=== PATIENT | female | born 1955 | race Caucasian/White ===

== ENCOUNTER → 2023-09-27 13:31 | Outpatient (REF) | payer MEDICARE, SELFPAY | LOC: WDC 13:31 | PROVIDERS: ATTENDING PHYSICIAN Surgery; FAMILY PHYSICIAN Nurse Practitioner Primary Care | DX: C50.412 Malignant neoplasm of upper-outer quadrant of left female breast (principal) | CPT/HCPCS: 19285; 38792; 76942; 77065; A4648; A9541 ==

== ENCOUNTER 2023-09-28 06:12 | Day surgery (SDC) | payer MEDICARE, SELFPAY ==
[2023-09-20 13:32] VITALS: BMI 38.0
[2023-09-28] VITALS (8 sets, daily range): BP systolic 123–184; BP diastolic 61–92; BMI 38.0
[2023-09-28] MEDS: TYLENOL 1000 MG PO (10:37)
[2023-09-28] MEDS: NORMOSOL-R 1000 IV (11:04)
[2023-09-28] MEDS: LOVENOX 40 MG SC (11:40)
--- NOTE | 2023-09-28 13:19 | W.IMMPOSTOP ---
Surgical Immed Post Op Note
-
Primary Surgeon: Kevin
Assisting Surgeon: None
Pre-op Diagnosis: Left breast ca
Post-op Diagnosis: Same
Procedure Performed: Left localized lumpectomy and sentinel lymph node mapping and biopsy
Anesthesia Type: TIVA
Specimen / Cultures: Left lumpectomy, sentinel node, margins
Estimated Blood Loss: 10cc
Complications: None
Operative Findings: Neg frozen on lymph node
[place] Node Bx Breast Cancer
[place] Node Bx Breast Cancer
Operation performed with curative intent: Yes
Tracer(s) to ID [place] Nodes in Non-Neoadjuvant setting: Radioactive Tracer
Tracer(s) to ID [place] Nodes in the Neoadjuvant Setting: N/A
All nodes at end of dye-filled Lymphatic Channel removed: N/A
All Significantly Radioactive Nodes were removed: Yes
All Palpably Suspicious Nodes were Removed: Yes
Bx Proven Pos Nodes Marked Prior to Chemo ID'd & Removed: N/A
== END 2023-09-28 15:08 | disposition home or self-care (01) ==
LOC: SDS 06:12
PROVIDERS: ATTENDING PHYSICIAN Surgery; FAMILY PHYSICIAN Nurse Practitioner Primary Care
DX: C50.412 Malignant neoplasm of upper-outer quadrant of left female breast (principal); Z17.0 Estrogen receptor positive status [ER+]
CPT/HCPCS: 38525; 19301; 88305; 88307; 88332; 76098; 88331; 88341; 88342; 88360; A4648

== ENCOUNTER → 2024-07-31 13:06 | Outpatient (REF) | payer MEDICARE, SELFPAY | LOC: WDC 13:06 | PROVIDERS: ATTENDING PHYSICIAN Family Medicine Geriatric Medicine; FAMILY PHYSICIAN Nurse Practitioner Primary Care | DX: Z12.31 Encounter for screening mammogram for malignant neoplasm of breast (principal); Z85.3 Personal history of malignant neoplasm of breast | CPT/HCPCS: 77063; 77067 ==